=== PATIENT | female | born 1975 | race Caucasian/White ===

== ENCOUNTER → 2024-04-14 | Outpatient (CLI) | payer BC, SELFPAY ==
[2024-04-14 14:18] LABS: Collection Type, Urine Clean Catch
[2024-04-14 16:54] LABS: Bilirubin,Urine Negative (Negative); Blood,Urine Negative (Negative); Clarity,Urine Clear (Clear/Hazy); Color,Urine Colorless (Lt Yel-Yel); Glucose, Urine Negative (Negative); Ketones,Urine Negative (Negative); Leukocyte Esterase,Urine Negative (Negative); Nitrite,Urine Negative (Negative); Protein,Urine Negative (Neg - Trace); RBC,Urine < 1 /hpf (0-3); Specific Gravity,Urine 1.008 (1.001-1.035); Squamous Epithelial Cell,Urine 1 /hpf (0-5); Urobilinogen,Urine Negative mg/dL (0.0-1.0); WBC,Urine < 1 /hpf (0-5)
== END | disposition home or self-care (01) ==
PROVIDERS: Referring Provider Family Medicine; Visit Provider Family Medicine
DX: R10.2 Pelvic and perineal pain (principal)
CPT/HCPCS: 81001; 87077; 87086; 87186

== ENCOUNTER → 2024-04-23 | Outpatient (CLI) | payer BC, SELFPAY ==
--- NOTE | 2024-04-23 13:00 | XR_ITS ---
Examination: Pelvic ultrasound, transabdominal, complete Technique: Transabdominal ultrasound of the pelvis performed using grayscale imaging Date and time of exam: April 23, 2024 1306 hours INDICATIONS: Pelvic sonogram September 29, 2015 lower uterine segment mass 14 x 13 x 15 mm, history intrauterine device 2 years FINDINGS: Uterus 10.3 cm endometrial stripe 0.6 cm No uterine mass or intrauterine gestation Right ovary obscured by bowel gas Left ovary 4.2 cm arterial flow, 3.1 x 2.6 x 2.8 cm simple cyst IMPRESSION: Left ovarian simple cyst 3.1 x 2.6 x 2.8 cm
== END | disposition home or self-care (01) ==
LOC: CDIM 12:32
PROVIDERS: PCP Family Medicine; Referring Provider Family Medicine; Visit Provider Family Medicine
DX: N83.292 Other ovarian cyst, left side (principal)
CPT/HCPCS: 76856